=== PATIENT | male | born 1960 | race Caucasian/White ===

== ENCOUNTER → 2017-07-22 | Outpatient (CLI) | payer BC ==
[~2017-07-22] MED LIST: PERCOCET 325 MG1 TA2 PO; ULTRAM 50MG TAB50 MG PO
== END ==
LOC: COL.VAS 12:21
DX: M79.605 Pain in left leg (principal)

== ENCOUNTER → 2017-09-16 | Outpatient (CLI) | payer BC | LOC: COL.RAD 07:24 | DX: M71.22 Synovial cyst of popliteal space [Baker], left knee (principal) | CPT/HCPCS: J3301 ==

== ENCOUNTER → 2018-04-07 | Outpatient (CLI) | payer BC | LOC: COL.RAD 12:45 | DX: I86.1 Scrotal varices (principal) ==

== ENCOUNTER 2019-07-05 12:36 | Outpatient (CLI) | payer BC ==
[~2019-07-05] VITALS: Ht 177.8 cm; Wt 97.0 kg
[2019-07-05] VITALS (9 sets, daily range): BP systolic 133–168; BP diastolic 82–95; PULSE 65–86
[2019-07-05] MEDS ORDERED: LIPITOR 40MG TA40 MG PO (13:19)
[2019-07-05 14:40] LABS: GLUCOSE,CSF 51 mg/dL (40-70); TOTAL PROTEIN,CSF 46 mg/dL (15-45)
[2019-07-05 14:50] LABS: CSF APPEARANCE CLEAR; CSF COLOR COLORLESS; CSF RBC 0 /mm3 (0-0)
[2019-07-05 14:55] LABS: CSF MONONUCLEAR 0 % (70-100); CSF POLYMORPHONUCLEAR 0 % (0-6)
--- NOTE | 2019-07-05 16:05 | NUR ---
Discharge instructions given to pt.pt verbalizes understanding.Pt escorted out via ambulatory.
[2019-07-09 13:51] LABS: CSF OLIG BD INTERPRETATION 0 bands (<4); CSF OLIGOCLONAL BANDING 0 bands (()); SE OLIGOCLONAL BANDING 0 bands (())
== END 2019-07-05 16:18 | disposition home or self-care (01) ==
LOC: COL.RAD 12:36
PROVIDERS: Psychiatry & Neurology Neurology
DX: G31.9 Degenerative disease of nervous system, unspecified (principal); G37.9 Demyelinating disease of central nervous system, unspecified

== ENCOUNTER → 2019-07-24 | Outpatient (CLI) | payer BC ==
[~2019-07-24] MED LIST changes: +LIPITOR 40MG TA40 MG PO
== END ==
LOC: COL.RAD 11:00
DX: H53.2 Diplopia (principal); R90.82 White matter disease, unspecified
CPT/HCPCS: Q9967

== ENCOUNTER 2019-10-29 07:56 | Emergency (ER) | payer SELFPAY ==
[~2019-10-29] VITALS: Ht 180.3 cm; Wt 79.5 kg
[2019-10-29 08:00] VITALS: TEMP 97.7
[2019-10-29 09:08] LABS: BASO # 0.1 (0.0-0.2); BASO % 0.8 % (0.0-2.0); EOS # 0.1 (0.0-0.7); EOS % 0.6 % (0-4.0); GRAN # 5.8 (1.4-6.5); GRAN % 74.4 % (42.2-75.2); HEMATOCRIT 52.4 % (42.0-52.0); HEMOGLOBIN 17.4 g/dl (13.5-18.0); LYMPH # 1.3 (1.2-3.4); LYMPH % 16.5 % (20.0-51.0); MEAN CELL VOLUME 92 fl (80.0-100.0); MEAN CORPUSCULAR HEMOGLOBIN 31 pg (27.0-31.0); MEAN CORPUSCULAR HGB CONC 33 g/dl (33.0-37.0); MEAN PLATELET VOLUME 10.2 fl (7.4-10.4); MONO # 0.6 (0.1-0.6); MONO % 7.3 % (1.7-9.3); PLATELET COUNT 221 K/mm3 (130-400); RED BLOOD COUNT 5.68 M/mm3 (4.20-5.60); REDCELL DISTRIBUTION WIDTH-CV 12.9 % (11.5-14.5)
[2019-10-29 09:13] LABS: PROTHROMBIN TIME 11.1 SECONDS (9.7-12.8)
[2019-10-29 09:16] LABS: PARTIAL THROMBOPLASTIN TIME 30.5 SECONDS (26.0-37.0)
[2019-10-29 09:27] LABS: ACETAMINOPHEN 50 ug/mL (10-30); ALANINE AMINOTRANSFERASE 11 U/L (21-72); ALBUMIN 4.1 gm/dL (3.5-5.0); ALKALINE PHOSPHATASE 50 U/L (50-136); ANION GAP 9 mmol/L (7-16); AST,SGOT 27 U/L (15-37); BILIRUBIN,TOTAL 0.5 mg/dL (0.0-1.0); BLOOD UREA NITROGEN 19 mg/dL (9-20); CARBON DIOXIDE 26 mmol/L (22-30); CHLORIDE 107 mmol/L (98-107); CREATININE, serum 1.41 (0.66-1.25); GLUCOSE 96 mg/dL (74-106); MAGNESIUM 2.1 mg/dL (1.6-2.3); PHOSPHOROUS 2.8 mg/dL (2.5-4.5); POTASSIUM 4.7 mmol/L (3.4-5.0); SALICYLATE 1.1 mg/dL; SODIUM 142 mmol/L (137-145); TOTAL PROTEIN 7.2 gm/dL (6.4-8.2)
[2019-10-29 09:33] LABS: ALCOHOL(ethanol),MEDICAL < 10 mg/dL
[2019-10-29 10:43] LABS: COLLECTION METHOD CLEAN CATCH
[2019-10-29 10:54] LABS: MUCOUS Present /lpf; PH 5 (5-8); SQUAMOUS EPITHELIAL 0-2 /hpf; URINE APPEARANCE Clear; URINE BACTERIA None Seen /hpf; URINE BILIRUBIN Negative (NEGATIVE); URINE BLOOD Negative (NEGATIVE); URINE COLOR Yellow; URINE GLUCOSE Negative (NEGATIVE); URINE KETONE Negative (NEGATIVE); URINE LEUKOCYTE ESTERASE Negative (NEGATIVE); URINE NITRATE Negative (NEGATIVE); URINE PROTEIN(semi-quant) Negative (NEGATIVE); URINE UROBILINOGEN Negative (NEGATIVE)
[2019-10-29 11:11] LABS: TRICYCLIC ANTIDEPRESS URINE NEGATIVE
[2019-10-29 20:00] VITALS: BP 138/89; PULSE 80
== END 2019-10-29 20:00 ==
LOC: COL.ER 07:56
PROVIDERS: Emergency Medicine
DX: T39.1X2A Poisoning by 4-Aminophenol derivatives, intentional self-harm, initial encounter (principal); R45.851 Suicidal ideations; F32.9 Major depressive disorder, single episode, unspecified; E78.00 Pure hypercholesterolemia, unspecified
CPT/HCPCS: J2405; J7030